=== PATIENT | male | born 1945 | race Two or more races ===

== ENCOUNTER 2021-04-18 07:20 | Day surgery (SDC) | payer MEDICARE ==
[2021-04-11 16:01] LABS: BASOPHILS % (AUTO) 0.3 % (0-1); EOSINOPHILS # (AUTO) 0.5 X10'3 (0-0.9); EOSINOPHILS % (AUTO) 5.6 % (0-6); LYMPHOCYTES # (AUTO) 2.2 X10'3 (1.1-4.8); LYMPHOCYTES % (AUTO) 26.6 % (21-51); MEAN CORPUSCULAR HEMOGLOBIN 31.1 PG (27.0-31.0); MEAN CORPUSCULAR HGB CONC 32.8 g/dL (33.0-36.5); MEAN CORPUSCULAR VOLUME 94.8 FL (78-98); MONOCYTES # (AUTO) 0.7 X10'3 (0-0.9); NEUTROPHILS # (AUTO) 4.7 X10'3 (1.8-7.7); NEUTROPHILS % (AUTO) 58.5 % (42-75); PRE OP HEMATOCRIT 42.7 % (42.0-52.0); PRE OP PLATELET COUNT 241 X10'3 (140-440); RED CELL DISTRIBUTION WIDTH 13.3 % (11.5-14.5)
[2021-04-11 16:22] LABS: ALBUMIN 4.1 G/DL (3.4-5.0); ALBUMIN/GLOBULIN RATIO 1.2 (1.1-1.5); ALKALINE PHOSPHATASE 75 IU/L (46-116); BLOOD UREA NITROGEN 25 MG/DL (7-18); CALCIUM 9.2 MG/DL (8.5-10.1); CHLORIDE 107 MMOL/L (99-107); CREATININE 0.96 MG/DL (0.60-1.10); PRE OP ALT 20 U/L (30-65); PRE OP ANION GAP 8 (8-16); PRE OP AST 10 U/L (10-37); PRE OP BILIRUB, TOTAL 0.4 MG/DL (0.0-1.0); PRE OP GLUCOSE 100 MG/DL (70-104); PRE OP POTASSIUM 3.8 MMOL/L (3.4-5.1); PRE OP SODIUM 145 MMOL/L (135-145); TOTAL PROTEIN 7.6 G/DL (6.4-8.2); eGFR 76 ML/MIN
[~2021-04-18] VITALS: Ht 170.2 cm; Wt 71.4 kg
[2021-04-18] VITALS (7 sets, daily range): BP systolic 128–187; BP diastolic 62–74
[~2021-04-18 07:20] MED LIST: BENA10TA74 PO; LOVA40TA2 PO; ceFOXitin 2GM-NS 100mL ADDvant 100 ML IV ONE; famotidine 20mg tablet PO ONE; ringers solution, lacted 1,000 ML IV SCH
[2021-04-18] MEDS ORDERED: METO50TA16 PO (08:14)
[2021-04-18] MEDS ORDERED: LIDOcaine 1% 30ml preserv. free vial ONE (09:43)
[2021-04-18] MEDS ORDERED: BUPIVAcaine/PF 2.5mg/ml (0.25%) 10ml vial ONE (09:43)
[2021-04-18] MEDS ORDERED: fentaNYL/PF 50MCG/1 ML 2ML syringe ONE (09:54)
[2021-04-18] MEDS ORDERED: propofol inj 20 ML IV ONE (09:55)
[2021-04-18] MEDS ORDERED: rocuronium 10mg/ml inj IV ONE (09:55)
[2021-04-18] MEDS ORDERED: midazolam 1 mg/ML 2ml injection ONE (09:55)
[2021-04-18] MEDS ORDERED: ringers solution, lacted 1,000 ML IV SCH (10:35)
[2021-04-18] MEDS ORDERED: morphine 4 MG/ML inj SYRINge IV PRN (10:35)
[2021-04-18] MEDS ORDERED: meperidine/PF 25mg/ml syringe IV PRN ×3 (10:35)
[2021-04-18] MEDS ORDERED: proCHLORperazine 10 MG/2 ml inj IV PRN (10:35)
[2021-04-18] MEDS ORDERED: ondansetron/PF 4mg/2ml inj IV PRN (10:35)
[2021-04-18] MEDS ORDERED: morphine 2 MG/ML inj. syringe IV PRN (10:35)
[2021-04-18] MEDS ORDERED: labetalol 20mg/4ml (5mg/ml) syringe IV PRN (10:35)
[2021-04-18] MEDS ORDERED: dexamethasone sod phosphate 4mg/ml inj. ONE (10:48)
[2021-04-18] MEDS ORDERED: hydrALAZINE 20mg/ml inj. IV ONE (10:48)
[2021-04-18] MEDS ORDERED: glycopyrrolate 0.2mg/ml inj ONE (11:41)
[2021-04-18] MEDS ORDERED: neostigmine methylsulfate 1 MG/ML 10ml vial ONE (11:41)
--- NOTE | 2021-04-18 11:58 | NUR ---
Received from OR via , accompanied by Anesthesiologist DR FRAGA and report given by Anesthesiolgist. AWAKENS TO VOICE. VITALS STABLE. DRESSINGS DI. SAUNDRA PAIN. ABD SOFT. JENNINGS WITH CLEAR URINE.
[2021-04-18] MEDS ORDERED: HYDROcodone/acetaminophen 5mg/325mg tablet PO PRN (12:05)
--- NOTE | 2021-04-18 13:08 | NUR ---
AWAKE AND ORIENTED. VITALS STABLE. DRESSINGS DI. SAUNDRA PAIN. HOME WITH IS DAUGHTER AT THIS TIME.
== END 2021-04-18 13:08 | disposition home or self-care (01) ==
LOC: PAS 07:20
PROVIDERS: ATTEND Surgery
DX: K40.91 Unilateral inguinal hernia, without obstruction or gangrene, recurrent (principal); I25.10 Atherosclerotic heart disease of native coronary artery without angina pectoris; I10 Essential (primary) hypertension; F17.210 Nicotine dependence, cigarettes, uncomplicated; Z79.899 Other long term (current) drug therapy; Z95.1 Presence of aortocoronary bypass graft; Z98.890 Other specified postprocedural states; Z20.822 Contact with and (suspected) exposure to COVID-19; Z72.89 Other problems related to lifestyle
CPT/HCPCS: 36415; 49651; 71046; 80053; 82948; 85025; 93005; C1758; C1781; J0360; J0694; J1100; J2001; J2250; J2704; J2710; J3010; J3490; J7030; U0003; U0005; Z7506; Z7508; Z7512; A4215; A4618; J7120